=== PATIENT | female | born 1955 | race Caucasian/White ===

== ENCOUNTER 2018-01-09 10:51 | Emergency (ER) | payer OTHER ==
[~2018-01-09] VITALS: Ht 162.6 cm; Wt 111.6 kg
[2018-01-09] MEDS ORDERED: DEPAKOTE ER500 MG (11:01)
[2018-01-09] MEDS ORDERED: RISPERDAL0.5 MG (11:01)
[2018-01-09] MEDS ORDERED: ASPIR-TRIN325 MG (11:01)
[2018-01-09] MEDS ORDERED: SYNTHROID150 MCG (11:01)
[2018-01-09] MEDS ORDERED: PLAQUENIL (11:01)
[2018-01-09] MEDS ORDERED: LOSARTAN POTASS25 MG (11:02)
[2018-01-09] MEDS ORDERED: VITAMIN D10000 UNIT (11:02)
== END 2018-01-09 16:31 | disposition home or self-care (01) ==
LOC: ER 10:51
DX: S92.325A Nondisplaced fracture of second metatarsal bone, left foot, initial encounter for closed fracture (principal); W18.39XA Other fall on same level, initial encounter; Y93.89 Activity, other specified; Y92.098 Other place in other non-institutional residence as the place of occurrence of the external cause; Y99.8 Other external cause status

== ENCOUNTER 2018-02-24 17:13 | Emergency (ER) | payer OTHER ==
[~2018-02-24] VITALS: Ht 162.6 cm; Wt 111.6 kg
[~2018-02-24 17:13] MED LIST: ASPIR-TRIN325 MG; DEPAKOTE ER500 MG; LOSARTAN POTASS25 MG; PLAQUENIL; RISPERDAL0.5 MG; SYNTHROID150 MCG; VITAMIN D10000 UNIT
== END 2018-02-24 21:34 | disposition home or self-care (01) ==
LOC: ER 17:13
DX: G89.11 Acute pain due to trauma (principal); M79.672 Pain in left foot; S92.325S Nondisplaced fracture of second metatarsal bone, left foot, sequela; S92.335S Nondisplaced fracture of third metatarsal bone, left foot, sequela; X58.XXXS Exposure to other specified factors, sequela

== ENCOUNTER 2022-09-23 07:45 | Inpatient (IN) | payer OTHER ==
[2022-09-23] MEDS ORDERED: ECOTRIN81 MG PO (09:31)
[2022-09-23] MEDS ORDERED: SYNTHROID175 MCG PO (09:32)
[2022-09-23] MEDS ORDERED: RISPERDAL2 MG PO (09:32)
[2022-09-23] MEDS ORDERED: DITROPAN XL10 MG PO (09:33)
[2022-09-23] MEDS ORDERED: AZATHIOPRINE50 MG PO (09:34)
[2022-09-23] MEDS ORDERED: CITALOPRAM (09:34)
[2022-10-02] MEDS ORDERED: PERCOCET 5-3251 EACH PO (16:51)
[2022-10-02] MEDS ORDERED: ELIQUIS2.5 MG PO (16:51)
[2022-10-02] MEDS ORDERED: DUI500 PO (16:51)
== END 2022-10-02 22:51 | disposition home or self-care (01) | DRG 470 ==
LOC: SURH 09-30 05:00 → O/R 09-30 05:00 → SURH 09-30 07:45
PROVIDERS: ADMIT Orthopaedic Surgery; ATTEND Orthopaedic Surgery
PROC: 0SRD0J9 Replacement of Left Knee Joint with Synthetic Substitute, Cemented, Open Approach (ICD-10-PCS; principal; 2022-09-30 17:45)
DX: M17.12 Unilateral primary osteoarthritis, left knee (principal); D62 Acute posthemorrhagic anemia; M22.12 Recurrent subluxation of patella, left knee; E66.8 Other obesity; I10 Essential (primary) hypertension; E03.9 Hypothyroidism, unspecified; M32.9 Systemic lupus erythematosus, unspecified; Z20.822 Contact with and (suspected) exposure to COVID-19

== ENCOUNTER 2023-12-17 07:30 | Inpatient (IN) | payer OTHER ==
[~2023-12-17] VITALS: Ht 162.6 cm; Wt 105.2 kg
[~2023-12-17 07:30] MED LIST changes: +AZATHIOPRINE50 MG PO; +CITALOPRAM; +DITROPAN XL10 MG PO; +DUI500 PO; +ECOTRIN81 MG PO; +ELIQUIS2.5 MG PO; +PERCOCET 5-3251 EACH PO; +RISPERDAL2 MG PO; +SYNTHROID175 MCG PO
[2023-12-17 08:56] LABS: URINE APPEARANCE Clear; URINE BILIRRUBIN Negative (NEGATIVE); URINE BLOOD Negative; URINE COLOR Yellow; URINE GLUCOSE Negative (NEGATIVE); URINE LEUKOCYTE Trace; URINE NITRATE Negative; URINE PROTEIN Negative (NEGATIVE); URINE UROBILINOGEN 0.2 E.U./dl
[2023-12-17 08:57] LABS: URINE BACTERIA 500.1 uL (0.0-1933); URINE EPITHELIAL CELLS 22.3 uL (0.0-38.8); URINE RBC 4.1 uL (0.0-20.8); URINE WBC 22.3 uL (0.0-23.2)
[2023-12-17 09:00] LABS: HEMATOCRIT 39.1 % (36.0-45.00); HEMOGLOBIN 13.3 g/dL (12.0-15.00); MEAN CELL VOLUME 93.5 fL (80.00-100.00); MEAN CORPUSCULAR HEMOGLOBIN 31.9 pg (27.00-32.0); MEAN CORPUSCULAR HGB CONC 34.1 g/dl (32.0-36.0); PLATELET COUNT 165 K/uL (150-450); RED BLOOD COUNT 4.18 M/uL (4.00-6.00); RED CELL DISTRIBUTION WIDTH 14.4 % (11.5-14.5)
[2023-12-17 09:25] LABS: INR 0.98; PROTHROMBIN TIME 10.3 SECONDS (9.0-11.5)
[2023-12-17 09:26] LABS: PARTIAL THROMBOPLASTIN TIME 36.5 SECONDS (22.0-34.0)
[2023-12-17 09:33] LABS: ALBUMIN 3.7 gm/dL (3.4-5.0); BILIRUBIN TOTAL 0.41 mg/dL (0.3-1.2); CALCIUM 10.3 mg/dL (8.5-10.1); CREATININE SERUM 0.81 mg/dL (0.55-1.02); GFR 70.74; GLOBULINA 3.6 G/DL (2.4-3.5); POTASSIUM 4.27 mEq/L (3.5-5.1); TOTAL PROTEIN 7.3 gm/dL (6.4-8.2)
[2023-12-29] MEDS ORDERED: TRANEXAMIC ACID 100MG/1ML (1000MG) AMPUL IV ONE ×2 (08:15)
[2023-12-29] MEDS ORDERED: CEFAZOLIN SODIUM 1,000 MG VIAL IV SCH ×2 (08:15→17:00)
[2023-12-29] MEDS ORDERED: FOLIC ACID1 MG (08:49)
[2023-12-29] MEDS ORDERED: CITALOPRAM HBR10 MG (08:49)
[2023-12-29] MEDS ORDERED: KETOROLAC TROMETHAMINE 60 MG VIAL IM ONE ×2 (09:32→10:30)
[2023-12-29] MEDS ORDERED: POVIDONE-IODINE 3 EA MED..SWAB TOP ONE (09:40)
[2023-12-29] MEDS ORDERED: LIDOCAINE HCL/EPINEPHRINE 10MG/ML 1% 50ML IJ ONE (10:30)
[2023-12-29] MEDS ORDERED: MORPHINE SULFATE 4 MG/ML CARTRIDGE IV ONE (10:30)
[2023-12-29] MEDS ORDERED: BUPIVACAINE HCL/PF 0.25% 30ML VIAL InF ONE (10:30)
[2023-12-29] MEDS ORDERED: OxyCODONE HCL 5 MG TABLET (ROXICODONE) PO PRN (10:45)
[2023-12-29] MEDS ORDERED: ONDANSETRON HCL 2 MG/ML VIAL IV PRN (10:45)
[2023-12-29] MEDS ORDERED: SODIUM CHLORIDE 0.45 % 1,000 ML IV SCH (10:45)
[2023-12-29] MEDS ORDERED: MORPHINE SULFATE 4 MG/ML CARTRIDGE IV PRN (10:45)
[2023-12-29] MEDS ORDERED: ACETAMINOPHEN 500 MG GEL..CAP PO SCH (12:00)
[2023-12-29] MEDS ORDERED: GABAPENTIN 300 MG CAPSULE PO SCH (17:00)
[2023-12-30 06:10] LABS: HEMATOCRIT 36.6 % (36.0-45.00); HEMOGLOBIN 12.6 g/dL (12.0-15.00); MEAN CELL VOLUME 95.6 fL (80.00-100.00); MEAN CORPUSCULAR HEMOGLOBIN 32.8 pg (27.00-32.0); MEAN CORPUSCULAR HGB CONC 34.4 g/dl (32.0-36.0); PLATELET COUNT 164 K/uL (150-450); RED BLOOD COUNT 3.83 M/uL (4.00-6.00); RED CELL DISTRIBUTION WIDTH 14.4 % (11.5-14.5)
[2023-12-30] MEDS ORDERED: PERCOCET 5-3251 EACH PO (07:52)
[2023-12-30] MEDS ORDERED: DUI500 PO (07:52)
[2023-12-30] MEDS ORDERED: ELIQUIS2.5 MG PO (07:52)
[2023-12-30] MEDS ORDERED: SENNOSIDES 1 TAB TABLET PO SCH (09:00)
[2023-12-30] MEDS ORDERED: APIXABAN 2.5 MG TABLET PO SCH (09:00)
[2023-12-30] MEDS ORDERED: VITAMIN B COMPLEX 1 EACH PO SCH (13:42)
[2023-12-30] MEDS ORDERED: Cyanocobalamin/Mecobalamin 1 TAB.SL SL SCH (13:42)
[2023-12-30] MEDS ORDERED: SOD FERRIC GLUC COMPLX/SUCROSE 62.5 MG/5 ML AMPUL IV SCH (13:43)
[2023-12-31 06:55] LABS: HEMATOCRIT 33.4 % (36.0-45.00); HEMOGLOBIN 11.5 g/dL (12.0-15.00); MEAN CELL VOLUME 93.9 fL (80.00-100.00); MEAN CORPUSCULAR HEMOGLOBIN 32.3 pg (27.00-32.0); MEAN CORPUSCULAR HGB CONC 34.4 g/dl (32.0-36.0); PLATELET COUNT 150 K/uL (150-450); RED BLOOD COUNT 3.56 M/uL (4.00-6.00); RED CELL DISTRIBUTION WIDTH 14.2 % (11.5-14.5)
[2023-12-31] MEDS ORDERED: IRON FUM,PS/FOLIC ACID/VITC/B3 1 CAP CAPSULE PO SCH (09:00)
== END 2023-12-31 20:17 | DRG 470 ==
LOC: O/R 12-29 05:18 → SURG 12-29 05:18 → SURH 12-29 07:30 → SURG 12-29 11:38 → SURH 12-29 17:00 → SURG 12-31 20:17
PROVIDERS: ADMIT Orthopaedic Surgery; ATTEND Orthopaedic Surgery
PROC: 0MNN0ZZ Release Right Knee Bursa and Ligament, Open Approach (ICD-10-PCS; 2023-12-29)
PROC: 0SRC0J9 Replacement of Right Knee Joint with Synthetic Substitute, Cemented, Open Approach (ICD-10-PCS; principal; 2023-12-29 17:00)
DX: M17.11 Unilateral primary osteoarthritis, right knee (principal); D62 Acute posthemorrhagic anemia; M22.11 Recurrent subluxation of patella, right knee

== ENCOUNTER 2024-01-22 07:28 | Inpatient (IN) | payer OTHER ==
[~2024-01-22] VITALS: Ht 162.6 cm; Wt 104.3 kg
[~2024-01-22 07:28] MED LIST changes: +CITALOPRAM HBR10 MG; +FOLIC ACID1 MG
[2024-01-22] MEDS ORDERED: VITAMIN C100 MG (07:50)
[2024-01-22] MEDS ORDERED: ST. JOSEPH ASPI81 M2 PO (07:50)
[2024-01-22 09:18] LABS: URINE APPEARANCE Clear; URINE BILIRRUBIN Negative (NEGATIVE); URINE BLOOD Negative; URINE COLOR Yellow; URINE GLUCOSE Negative (NEGATIVE); URINE LEUKOCYTE Negative; URINE NITRATE Negative; URINE PROTEIN Negative (NEGATIVE); URINE UROBILINOGEN 0.2 E.U./dl
[2024-01-22 09:20] LABS: HEMATOCRIT 33.7 % (36.0-45.00); HEMOGLOBIN 11.3 g/dL (12.0-15.00); MEAN CORPUSCULAR HEMOGLOBIN 31.3 pg (27.00-32.0); MEAN CORPUSCULAR HGB CONC 33.4 g/dl (32.0-36.0); PLATELET COUNT 227 K/uL (150-450); RED BLOOD COUNT 3.59 M/uL (4.00-6.00); RED CELL DISTRIBUTION WIDTH 15.2 % (11.5-14.5)
[2024-01-22 09:21] LABS: URINE BACTERIA 8.8 uL (0.0-1933); URINE EPITHELIAL CELLS 10.1 uL (0.0-38.8); URINE RBC 2.1 uL (0.0-20.8); URINE WBC 2.4 uL (0.0-23.2)
[2024-01-22 09:36] LABS: CALCIUM 9.7 mg/dL (8.5-10.1); CREATININE SERUM 1.16 mg/dL (0.55-1.02); GFR 46.74; POTASSIUM 5.09 mEq/L (3.5-5.1)
[2024-01-22 09:48] LABS: INR 1.02; PARTIAL THROMBOPLASTIN TIME 37.3 SECONDS (22.0-34.0); PROTHROMBIN TIME 10.7 SECONDS (9.0-11.5)
[2024-01-22] MEDS ORDERED: VANCOMYCIN HCL 500 MG in 0.9 % SODIUM CHLORIDE 100 ML IV SCH (18:00)
[2024-01-22] MEDS ORDERED: 0.9 % SODIUM CHLORIDE 1,000 ML IV SCH (19:30)
[2024-01-22] MEDS ORDERED: CEFTRIAXONE SODIUM 1,000 MG VIAL IV SCH (19:33)
[2024-01-22] MEDS ORDERED: RISPERIDONE 1 MG TABLET PO SCH (19:34)
[2024-01-22] MEDS ORDERED: DIVALPROEX SODIUM 500 MG TAB.ER.24H PO SCH (19:35)
[2024-01-22] MEDS ORDERED: PATIENTS OWN MEDICATION (MEDICAMENTO EN PISO) PO SCH (19:36)
[2024-01-22] MEDS ORDERED: ACETAMINOPHEN 500 MG GEL..CAP PO PRN (19:45)
[2024-01-22] MEDS ORDERED: ONDANSETRON HCL 4 MG in 0.9 % SODIUM CHLORIDE 50 ML IV PRN (19:45)
[2024-01-22] MEDS ORDERED: ENALAPRILAT DIHYDRATE 1.25 MG/ML VIAL IV PRN (19:45)
[2024-01-22] MEDS ORDERED: FAMOTIDINE/PF 20 MG in 0.9 % SODIUM CHLORIDE 8 ML IV PUSH SCH (21:00)
[2024-01-23] MEDS ORDERED: VANCOMYCIN HCL 500 MG in 0.9 % SODIUM CHLORIDE 100 ML IV SCH
[2024-01-23] MEDS ORDERED: MORPHINE SULFATE 4 MG/ML VIAL IV SCH
[2024-01-23] MEDS ORDERED: LEVOTHYROXINE SODIUM 150 MCG TABLET PO SCH (06:00)
[2024-01-23 06:23] LABS: INR 1.04; PARTIAL THROMBOPLASTIN TIME 37.3 SECONDS (22.0-34.0); PROTHROMBIN TIME 10.9 SECONDS (9.0-11.5)
[2024-01-23 06:40] LABS: HEMATOCRIT 31.9 % (36.0-45.00); HEMOGLOBIN 10.8 g/dL (12.0-15.00); MEAN CELL VOLUME 94.7 fL (80.00-100.00); MEAN CORPUSCULAR HEMOGLOBIN 32.2 pg (27.00-32.0); PLATELET COUNT 217 K/uL (150-450); RED BLOOD COUNT 3.37 M/uL (4.00-6.00); RED CELL DISTRIBUTION WIDTH 14.8 % (11.5-14.5)
[2024-01-23 08:03] LABS: ALBUMIN 2.5 gm/dL (3.4-5.0); ALKALINE PHOSPHATASE 88 U/L (50-136); ALT/SGPT 9 U/L (12-78); ANION GAP 8 (10.0-20.0); AST/SGOT 12 U/L (15-37); BILIRUBIN TOTAL 0.31 mg/dL (0.3-1.2); BILIRUBIN,CONJUGATED < 0.10 mg/dL (0.0-0.2); BILIRUBIN,UNCONJUGATED 0.21 mg/dL (0.0-0.6); BLOOD UREA NITROGEN 12 mg/dL (7-18); BUN CREA RATIO 13 (7.0-25.0); CARBON DIOXIDE 26 mEq/L (21-32); CHLORIDE 114 mmol/L (98-107); CHOL HDL RATIO 3.5 (0-5.0); CHOLESTEROL 119 mg/dL (0-200); CREATININE SERUM 0.94 mg/dL (0.55-1.02); GLOBULINA 3.3 G/DL (2.4-3.5); GLUCOSE FASTING 73 mg/dL (65-100); HDL 34 mg/dl (40-60); LDL 71 mg/dl (0-130); OSMOLALITY SERUM 283 MOSM/KG (275-295); POTASSIUM 5.05 mEq/L (3.5-5.1); SODIUM 143 mmol/L (136-145); TOTAL PROTEIN 5.8 gm/dL (6.4-8.2); TRIGLYCERIDES 70 mg/dL (0-150); VLDL 14 (0-39)
[2024-01-23 08:08] LABS: PH,URINE 7.5 (5.0-8.0); URINE APPEARANCE Clear; URINE BILIRRUBIN Negative (NEGATIVE); URINE BLOOD NHT; URINE COLOR Yellow; URINE GLUCOSE Negative (NEGATIVE); URINE LEUKOCYTE Trace; URINE NITRATE Negative; URINE PROTEIN Negative (NEGATIVE); URINE UROBILINOGEN 0.2 E.U./dl
[2024-01-23 08:13] LABS: URINE BACTERIA 26.4 uL (0.0-1933); URINE EPITHELIAL CELLS 1.6 uL (0.0-38.8); URINE WBC 14.2 uL (0.0-23.2)
[2024-01-23 08:37] LABS: C-REACTIVE PROTEIN 1.19 MG/DL (0.00-0.29); GFR 59.58
[2024-01-23 08:38] LABS: ERYTHROCYTE SEDIMENTATION RATE 50 mm/hr
[2024-01-23] MEDS ORDERED: AZATHIOPRINE 50 MG TABLET PO SCH (09:00)
[2024-01-23] MEDS ORDERED: OXYBUTYNIN CHLORIDE 5 MG TABLET PO SCH (09:00)
[2024-01-23] MEDS ORDERED: ENOXAPARIN SODIUM 40 MG/0.4 ML SYRINGE SUBCUTANEO SCH (09:00)
[2024-01-24] MEDS ORDERED: VANCOMYCIN HCL 1,000 MG VIAL IV SCH (09:00)
[2024-01-24] MEDS ORDERED: CEFTRIAXONE SODIUM 1,000 MG VIAL IV SCH (09:00)
[2024-01-24 10:37] LABS: CALCIUM 9.3 mg/dL (8.5-10.1); CREATININE SERUM 0.82 mg/dL (0.55-1.02); GFR 69.75; POTASSIUM 4.45 mEq/L (3.5-5.1)
[2024-01-25 06:17] LABS: HEMATOCRIT 32.6 % (36.0-45.00); HEMOGLOBIN 11.2 g/dL (12.0-15.00); MEAN CELL VOLUME 94.6 fL (80.00-100.00); MEAN CORPUSCULAR HEMOGLOBIN 32.4 pg (27.00-32.0); MEAN CORPUSCULAR HGB CONC 34.3 g/dl (32.0-36.0); PLATELET COUNT 205 K/uL (150-450); RED BLOOD COUNT 3.45 M/uL (4.00-6.00); RED CELL DISTRIBUTION WIDTH 14.6 % (11.5-14.5)
[2024-01-25 07:15] LABS: ALBUMIN 2.4 gm/dL (3.4-5.0); BILIRUBIN TOTAL 0.25 mg/dL (0.3-1.2); CREATININE SERUM 0.8 mg/dL (0.55-1.02); GFR 71.76; GLOBULINA 3.2 G/DL (2.4-3.5); MAGNESIUM 2.1 mg/dL (1.8-2.4); POTASSIUM 4.74 mEq/L (3.5-5.1); TOTAL PROTEIN 5.6 gm/dL (6.4-8.2)
[2024-01-25] MEDS ORDERED: CEFTRIAXONE SODIUM 2,000 MG VIAL IV SCH (09:00)
[2024-01-25] MEDS ORDERED: SODIUM CL 0.9% 100 ML IV.SOLN IV ONE (23:59)
[2024-01-27] MEDS ORDERED: DUI500 PO (07:53)
[2024-01-27] MEDS ORDERED: TRAM1TAB98 PO (07:53)
== END 2024-01-27 10:17 | disposition home or self-care (01) | DRG 863 ==
LOC: ER 07:29 → MEDJ 20:07
PROVIDERS: General Practice; Internal Medicine; ADMIT Orthopaedic Surgery; ATTEND Orthopaedic Surgery
PROC: BQ3DZZZ Magnetic Resonance Imaging (MRI) of Right Lower Leg (ICD-10-PCS; principal; 2024-01-22)
DX: T81.42XA Infection following a procedure, deep incisional surgical site, initial encounter (principal); L02.415 Cutaneous abscess of right lower limb; L03.115 Cellulitis of right lower limb; F32.3 Major depressive disorder, single episode, severe with psychotic features; B95.61 Methicillin susceptible Staphylococcus aureus infection as the cause of diseases classified elsewhere; D64.9 Anemia, unspecified; M32.9 Systemic lupus erythematosus, unspecified; Z20.822 Contact with and (suspected) exposure to COVID-19; E03.9 Hypothyroidism, unspecified
CPT/HCPCS: 73221

== ENCOUNTER 2025-03-21 14:38 | Outpatient (CLI) | payer OTHER ==
[~2025-03-21 14:38] MED LIST changes: +ASA325 M1 PO; +MAXIMUM D3325 MCG; +MORGIDOX100 MG PO; +ST. JOSEPH ASPI81 M2 PO; +TRAM1TAB98 PO; +VITAMIN C100 MG
== END 2025-03-21 14:42 | disposition home or self-care (01) ==
LOC: RAD 14:38
PROVIDERS: ATTEND Internal Medicine
DX: R05.9 Cough, unspecified (principal)